=== PATIENT | female | born 1940 ===

== ENCOUNTER 2018-01-14 11:00 | Inpatient (IN) | payer OTHER ==
[~2018-01-14] VITALS: Ht 165.1 cm; Wt 70.3 kg
[2018-01-14] MEDS ORDERED: METOPROLOL SUCC25 MG PO (13:09)
[2018-01-14] MEDS ORDERED: GRALISE300 MG PO (13:10)
[2018-01-23] MEDS ORDERED: ULTRACET PO (11:48)
[2018-01-23] MEDS ORDERED: COLACE100 MG PO (11:48)
== END 2018-01-23 13:24 | disposition home or self-care (01) | DRG 741 ==
LOC: ADM 11:00 → EDSTATUS 11:00 → SURG 01-21 06:48 → O/R 01-21 06:48 → SURG 01-21 11:00
PROVIDERS: Obstetrics & Gynecology Gynecologic Oncology
PROC: 0UT70ZZ Resection of Bilateral Fallopian Tubes, Open Approach (ICD-10-PCS; 2018-01-21)
PROC: 0UT90ZZ Resection of Uterus, Open Approach (ICD-10-PCS; principal; 2018-01-21 15:30)
DX: C54.1 Malignant neoplasm of endometrium (principal)